=== PATIENT | female | born 1945 | race Caucasian/White ===

== ENCOUNTER 2017-02-08 17:02 | Inpatient (IN) ==
--- NOTE | 2017-02-08 18:02 | Emergency Department Note ---
Disposition Clinical Impression: Weakness, Hypercalcemia, Dizziness, ARF (acute renal failure), Dehydration Disposition: Admitted As Inpatient Condition: Fair Referrals: Namita Rodriguez, FAMILY DINNER SERVICE SPECIALIST [Primary Care Provider] - Forms: ED Satisfaction Letter Time of Disposition: 19:31 ([facility]) Dizziness HPI - General Chief Complaint: ED Dizziness Stated Complaint: Nausea, dizzy, "not myself" Time Seen by Provider: 02/08/17 17:08 Source: patient Mode of arrival: ambulatory Limitations: no limitations Nursing Notes Reviewed: Yes Vital Signs Reviewed: Yes - History of Present Illness HPI Narrative: History of having weakness and ataxia feels like she is lightheaded dizzy feeling she is given a passout states that she cannot walk straight line patient states that she is ataxia states that she has had decreased urine output she has had no fever no chills no lightheadedness that is she has had some pain she denies any burning or urgency stinging cough. Except as all systems reviewed and otherwise negative Pt Subjective Complaint: dizziness, lightheadedness, difficulty walking, weakness Onset (ago): day(s) Timing: gradual onset Description: sense of movement, lightheadedness, off-balance, difficulty walking History of similar episodes: No History of trauma: No Severity: mild Improves with: nothing Worsens with: movement Associated symptoms: Reports: ataxia, malaise, syncope (near), weakness. Denies : chest pain, confusion, diaphoresis, fever, chills, rash, shortness of breath, vision changes, nausea, vomiting, palpitations - Related Data Home Medications Medication Instructions Recorded Confirmed ALPRAZolam [Xanax 0.25 MG Tablet] 0.25 mg PO TID PRN 02/08/17 02/08/17 Aspirin [Lo-Dose Aspirin EC] 81 mg PO DAILY 02/08/17 02/08/17 Lisinopril [Zestril] 40 mg PO DAILY 02/08/17 02/08/17 Meclizine HCl [Verticalm] 25 mg PO DAILY PRN 02/08/17 02/08/17 Multivit-Min/Iron Fum/Folic AC 1 tab PO DAILY 02/08/17 02/08/17 [Stoyj-Ibycyof-Yffcaaeb Tablet] Ondansetron ODT [Zofran ODT] 4 mg SL Q8HR 02/08/17 02/08/17 Simvastatin [Zocor] 40 mg PO HS 02/08/17 02/08/17 hydroCHLOROthiazide 25 mg PO DAILY 02/08/17 02/08/17 [Hydrochlorothiazide] metFORMIN [Glucophage] 500 mg PO BIDWM 02/08/17 02/08/17 Allergies Allergy/AdvReac Type Severity Reaction Status Date / Time No Known Allergies Allergy Verified 07/14/15 09:57 All systems ED: reviewed and negative except as stated. Review of Systems: As Per HPI Constitutional: Reports: weakness. Denies: fever, chills Eyes: Denies: eye pain, eye discharge ENT ED: Denies: ear pain, throat pain Cardiovascular: Denies: chest pain, palpitations Respiratory: Denies: cough, dyspnea Gastrointestinal: Denies: abdominal pain, nausea, vomiting Genitourinary: Denies: urgency, dysuria, frequency Musculoskeletal: Denies: back pain, neck pain Integumentary: Denies: rash, abrasion, lesions Neurological: Reports: weakness, abnormal gait, vertigo Psychiatric: Denies: anxiety Endocrine: Reports: fatigue Hematological/Lymphatic: Denies: easy bleeding Allergic/Immunologic: Denies: facial swelling Past Medical History - Past Medical History Attestation: Yes The following information was validated with the patient. Source: patient, old records reviewed, nursing notes reviewed Medical history: Reports: arthritis, diabetes, hypertension Psychiatric history: Reports: no psych history - Social History Smoking Status: Former smoker Smokeless Tobacco Status: No Alcohol use: Reports: none Drug use: Reports: none Physical Exam - General Limitations: no limitations General appearance: alert, in no apparent distress, obese - Head Head exam: atraumatic, normocephalic, normal inspection - Eye Eye exam: Present: normal appearance, PERRL, EOMI - ENT ENT exam: normal exam, normal oropharynx, mucous membranes moist, normal external ear exam - Neck Neck exam: Present: normal inspection, full ROM, trachea midline - Chest Chest inspection: Present: normal inspection, symmetric chest wall rise - Respiratory Respiratory exam: Present: normal lung sounds bilaterally - Cardiovascular Cardiovascular exam: Present: regular rate, normal rhythm, normal heart sounds - Abdominal Exam Abdominal exam: Present: soft, Non-Tender, normal bowel sounds - Extremities Exam Extremities exam: Present: normal inspection, full ROM, normal capillary refill. Absent: tenderness, pedal edema, joint swelling, calf tenderness - Expanded Lower Extremity Exam Neurovascular/Tendon exam: Present: normal capillary refill, normal fine/light touch Gait: observed and normal - Back Exam Back exam: Present: normal inspection, full ROM. Absent: muscle spasm - Neurological Exam Neurological exam: Present: alert, oriented X3, CN II-XII intact, normal gait, other (Global weakness but no focal weakness on examination she has got no drift arms or legs) - Psychiatric Psychiatric exam: Present: normal affect, normal mood - Skin Skin exam: Present: warm, dry, intact, normal color Course Course Narrative: Seen and examination IV hydrated slowly patient does not meet criteria for sepsis patient be transferred to [facility] for continued IV hydration due to the dehydration which is most likely contributing to the dizziness and weakness I spoke with Dr. Blum he is in agreement we will not add any medications to try to further the decreasing of the calcium other than the IV hydration and function of the kidneys patient's understanding transferred to [facility] stable Vital Signs Temperature 97.2 F L 02/08/17 17:08 Pulse Rate 81 02/08/17 17:08 Respiratory Rate 18 02/08/17 17:08 Blood Pressure 158/80 02/08/17 17:08 O2 Sat by Pulse Oximetry 97 02/08/17 17:08 Temperature 97.2 F L 02/08/17 17:08 Pulse Rate 73 02/08/17 18:24 Respiratory Rate 15 02/08/17 18:24 Blood Pressure 134/63 02/08/17 18:24 O2 Sat by Pulse Oximetry 92 02/08/17 18:24 Oxygen Delivery Oxygen Delivery Room Air Dizziness - MDM Narrative Medical decision making narrative: Anabolic imbalance stroke infection or etiologies as well as renal failure hypercalcemia was making additional complications with this hitting the aggressiveness of the fluid hydration to help flush out the calcium - Medical Records Medical records reviewed: Yes I reviewed the patient's medical records. - Lab Data Lab results reviewed: Yes I reviewed the patient's lab results. Result diagrams: 02/08/17 18:19 02/08/17 18:19 Lab Results 02/08/17 02/08/17 02/08/17 Range/Units 18:19 18:19 18:19 WBC 7.3 (4.3-11.1) K/mcL RBC 4.06 (3.82-4.97) M/mcL Hgb 10.0 L (11.5-15.4) g/dL Hct 32.9 L (35.3-44.9) % MCV 81.0 L (83.0-100.0) fL MCH 24.6 L (28.0-33.3) pg MCHC 30.4 L (31.6-35.5) g/dL RDW 17.1 H (11.5-14.5) % Plt Count 346 (140-400) K/mcL MPV 9.9 (9.4-12.4) fL Immature Gran % 0.7 (0-4) % Seg Neutrophils % 59.2 % Lymphocytes % 28.0 % Monocytes % 10.7 % Eosinophils % 1.0 % Basophils % 0.4 % Neutrophils # 4.3 (1.6-8.9) K/mcL Lymphocytes # 2.0 (0.6-4.6) K/mcL Monocytes # 0.8 (0.0-1.3) K/mcL Eosinophils # 0.1 (0.0-0.6) K/mcL Basophils # 0.0 (0.0-0.2) K/mcL PT 12.1 (9.4-12.1) Seconds INR 1.1 APTT 37.5 H (26.0-36.0) Seconds Sodium 143 (136-145) mEq/L Potassium 3.9 (3.5-4.5) mEq/L Chloride 106 (98-109) mEq/L Carbon Dioxide 24 (19-29) mEq/L BUN 51 H (7-20) mg/dL Creatinine 2.23 H (0.57-1.11) mg/dL Est GFR ( Amer) 26 L (> 60) Est GFR (Non-Af Amer) 22 L (> 60) BUN/Creatinine Ratio 23 (6-26) Glucose 100 H (70-99) mg/dL Calculated Osmolality 310 H (280-300) Calcium 14.6 H* (8.6-10.8) mg/dL Total Bilirubin 0.3 (0.2-1.2) mg/dL AST 14 (5-34) Units/L ALT 18 (0-55) Units/L Alkaline Phosphatase 129 H (38-126) Units/L Serum Total Protein 7.5 (6.0-8.3) g/dL Albumin 3.0 L (3.5-5.0) g/dL Globulin 4.5 H (2.4-3.5) g/dL Albumin/Globulin Ratio 0.7 L (1.1-2.2) TSH 4.110 (0.350-4.840) mcIU/mL Urine Color (Yellow) Urine Clarity (Clear) Urine pH (5.0-8.0) pH Units Ur Specific Douglas (1.010-1.025) Urine Protein (Neg-Trace) mg/dL Urine Glucose (UA) (Normal) mg/dL Urine Ketones (Negative) mg/dL Urine Blood (Negative) Urine Nitrite (Negative) Urine Bilirubin (Negative) Urine Urobilinogen (Normal) mg/dL Ur Leukocyte Esterase (Negative) Urine Microscopic RBC (0-3) per hpf Urine Microscopic WBC (0-3) per hpf Ur Squamous Epith Cells (None-Few) per lpf Urine Bacteria (None-Few) per hpf Hyaline Casts (None-Few) per lpf Urine Mucus (Few) Ur Culture Indicated? (NO) 02/08/17 Range/Units 18:30 WBC (4.3-11.1) K/mcL RBC (3.82-4.97) M/mcL Hgb (11.5-15.4) g/dL Hct (35.3-44.9) % MCV (83.0-100.0) fL MCH (28.0-33.3) pg MCHC (31.6-35.5) g/dL RDW (11.5-14.5) % Plt Count (140-400) K/mcL MPV (9.4-12.4) fL Immature Gran % (0-4) % Seg Neutrophils % % Lymphocytes % % Monocytes % % Eosinophils % % Basophils % % Neutrophils # (1.6-8.9) K/mcL Lymphocytes # (0.6-4.6) K/mcL Monocytes # (0.0-1.3) K/mcL Eosinophils # (0.0-0.6) K/mcL Basophils # (0.0-0.2) K/mcL PT (9.4-12.1) Seconds INR APTT (26.0-36.0) Seconds Sodium (136-145) mEq/L Potassium (3.5-4.5) mEq/L Chloride (98-109) mEq/L Carbon Dioxide (19-29) mEq/L BUN (7-20) mg/dL Creatinine (0.57-1.11) mg/dL Est GFR ( Amer) (> 60) Est GFR (Non-Af Amer) (> 60) BUN/Creatinine Ratio (6-26) Glucose (70-99) mg/dL Calculated Osmolality (280-300) Calcium (8.6-10.8) mg/dL Total Bilirubin (0.2-1.2) mg/dL AST (5-34) Units/L ALT (0-55) Units/L Alkaline Phosphatase (38-126) Units/L Serum Total Protein (6.0-8.3) g/dL Albumin (3.5-5.0) g/dL Globulin (2.4-3.5) g/dL Albumin/Globulin Ratio (1.1-2.2) TSH (0.350-4.840) mcIU/mL Urine Color Yellow (Yellow) Urine Clarity Slightly Cloudy A (Clear) Urine pH 5.0 (5.0-8.0) pH Units Ur Specific Douglas 1.015 (1.010-1.025) Urine Protein Negative (Neg-Trace) mg/dL Urine Glucose (UA) Normal (Normal) mg/dL Urine Ketones 15 H (Negative) mg/dL Urine Blood Trace-lysed H (Negative) Urine Nitrite Positive A (Negative) Urine Bilirubin Negative (Negative) Urine Urobilinogen Normal (Normal) mg/dL Ur Leukocyte Esterase Negative (Negative) Urine Microscopic RBC 0-3 (0-3) per hpf Urine Microscopic WBC 5-15 H (0-3) per hpf Ur Squamous Epith Cells Few (None-Few) per lpf Urine Bacteria Many H (None-Few) per hpf Hyaline Casts Few (None-Few) per lpf Urine Mucus Few (Few) Ur Culture Indicated? YES A (NO) - Radiology Data Radiology results reviewed: Yes I reviewed the patient's radiology results. ITS Impressions Chest X-Ray 02/08/17 17:49 IMPRESSION: 1. Small right pleural effusion with bibasilar atelectasis. 2. Questionable 1.1 cm nodular opacity in left apex which could be related to overlying bony structures or degenerative changes at the 1st costochondral junction. This can be followed on subsequent exams. Dedicated two view chest x-ray may also be helpful. D/ / 02/08/2017 18:19:43 Trinh Jarrett MD / ela Interpreting Provider: Trinh Jarrett MD Head CT 02/08/17 17:49 IMPRESSION: No acute intracranial abnormality. D/ / Van Hurst MD / Van Hurst MD Interpreting Provider: Van Hurst MD - EKG Data EKG attestation: Yes I reviewed and interpreted this EKG. EKG results narrative: Sinus rhythm right bundle branch abnormal EKG with a rate of 72 pr 145 QRS 150 Q -T 372 axis XXIX Critical Care Time Critical Care Time: Yes Total Critical Care Time: 35 Attestation: Critical care performed:35 as is the patient is having an elevated calcium level which is essentially symptomatic causing her weakness she is also showing signs of renal impairment secondary dehydration which is also causing dizziness and weakness with this being noted there the patient was iv hydrated here in the emergency room we will admit her to [facility] because of the weakness and the elevated calcium to make sure that is coming down appropriately i spoke with dr. blum he has agreed transferred to [facility] Time is exclusive of separately billable procedures. Time includes: direct patient care, patient reassessment, coordination of patient care, interpretation of data (laboratory data, radiology data, and respiratory data), review of patient's medical records, medical consultation and documentation of patient care. Procedures included in critical care time: Procedures excluded from critical care time:
[2017-02-08 18:26] LABS: Basophils % 0.4 %; Eosinophils # 0.1 K/mcL (0.0-0.6); Hematocrit 32.9 % (35.3-44.9); Immature Granulocytes % 0.7 % (0-4); Mean Corpuscular HGB Conc 30.4 g/dL (31.6-35.5); Mean Corpuscular Hemoglobin 24.6 pg (28.0-33.3); Mean Platelet Volume 9.9 fL (9.4-12.4); Monocytes # 0.8 K/mcL (0.0-1.3); Monocytes % 10.7 %; Neutrophils # 4.3 K/mcL (1.6-8.9); Platelet Count 346 K/mcL (140-400); Red Blood Count 4.06 M/mcL (3.82-4.97); Red Cell Distribution Width 17.1 % (11.5-14.5); Segmented Neutrophils % 59.2 %
[2017-02-08 18:31] LABS: INR 1.1; Prothrombin Time 12.1 Seconds (9.4-12.1)
[2017-02-08 18:33] LABS: Activated Partial Thrombo Time 37.5 Seconds (26.0-36.0)
[2017-02-08 18:40] LABS: Bilirubin,Urine Negative (Negative); Blood,Urine Trace-lysed (Negative); Clarity,Urine Slightly Cloudy (Clear); Color,Urine Yellow (Yellow); Glucose,Urine (UA) Normal (Normal); Ketones,Urine 15 mg/dL (Negative); Leukocyte Esterase,Urine Negative (Negative); Nitrite,Urine Positive (Negative); Protein,Urine Negative (Neg-Trace); Specific Gravity,Urine 1.015 (1.010-1.025); Urobilinogen,Urine Normal (Normal)
[2017-02-08 18:43] LABS: Albumin/Globulin Ratio 0.7 (1.1-2.2); Bilirubin,Total 0.3 mg/dL (0.2-1.2); Globulin 4.5 g/dL (2.4-3.5); Potassium 3.9 mEq/L (3.5-4.5); Total Protein 7.5 g/dL (6.0-8.3)
[2017-02-08 18:47] LABS: Calcium 14.6 mg/dL (8.6-10.8)
[2017-02-08 18:49] LABS: Bacteria,Urine Many per hpf (None-Few); Hyaline Casts,Urine Few per lpf (None-Few); Mucus,Urine Few (Few); RBC,Urine 0-3 per hpf (0-3); Squamous Epithelial Cell,Urine Few per lpf (None-Few)
[2017-02-08 19:02] LABS: Thyroid Stimulating Hormone 4.11 mcIU/mL (0.350-4.840)
[2017-02-08] MEDS: 0.9 % Sodium Chloride 1,000 ML IVC SCH ×3 (19:42→21:55)
[2017-02-08] MEDS ORDERED: *HR* Dextrose 50 % in Water (Syg) 50 ML SYRINGE IVP PRN (20:46)
[2017-02-08] MEDS ORDERED: D5% in Water 1,000 ML IVC PRN (20:46)
[2017-02-08] MEDS ORDERED: Ondansetron ODT 4 MG TAB.RAPDIS SL PRN (20:46)
[2017-02-08] MEDS ORDERED: ALPRAZolam 0.25 MG TABLET PO PRN (20:46)
[2017-02-08] MEDS ORDERED: Dextrose Gel 15 GM PO PRN ×2 (20:46)
[2017-02-08] MEDS ORDERED: Naloxone 0.4 MG/ML INJ IVP PRN (20:46)
[2017-02-08] MEDS ORDERED: *HR* HYDROcodone/Acet 5/325 mg TABLET PO PRN (20:46)
[2017-02-09] MEDS: 0.9 % Sodium Chloride 1,000 ML IVC SCH ×7 (00:34→13:28)
[2017-02-09 05:27] LABS: Basophils % 0.3 %; Eosinophils # 0.1 K/mcL (0.0-0.6); Eosinophils % 1.4 %; Hematocrit 29.6 % (35.3-44.9); Hemoglobin 8.9 g/dL (11.5-15.4); Immature Granulocytes % 0.5 % (0-4); Lymphocytes # 1.7 K/mcL (0.6-4.6); Lymphocytes % 26.6 %; Mean Corpuscular HGB Conc 30.1 g/dL (31.6-35.5); Mean Corpuscular Hemoglobin 24.3 pg (28.0-33.3); Mean Corpuscular Volume 80.9 fL (83.0-100.0); Mean Platelet Volume 10.1 fL (9.4-12.4); Monocytes # 0.8 K/mcL (0.0-1.3); Monocytes % 12.3 %; Neutrophils # 3.8 K/mcL (1.6-8.9); Platelet Count 320 K/mcL (140-400); Red Blood Count 3.66 M/mcL (3.82-4.97); Red Cell Distribution Width 17.1 % (11.5-14.5); Segmented Neutrophils % 58.9 %
[2017-02-09 05:36] LABS: INR 1.1; Prothrombin Time 12.1 Seconds (9.4-12.1)
[2017-02-09 05:38] LABS: Activated Partial Thrombo Time 32.7 Seconds (26.0-36.0)
[2017-02-09 05:50] LABS: Calcium 12.9 mg/dL (8.6-10.8); Potassium 3.6 mEq/L (3.5-4.5)
[2017-02-09] MEDS ORDERED: *HR* Metformin 500 MG TABLET PO SCH (08:00)
[2017-02-09] MEDS: Insulin LISPRO 300 UNITS/3 ML VIAL SQ SCH ×2 (08:06→11:50)
[2017-02-09] MEDS ORDERED: hydroCHLOROthiazide 25 MG TABLET PO SCH (09:00)
[2017-02-09] MEDS ORDERED: Aspirin Enteric Coated 81 MG Tablet PO SCH (09:00)
[2017-02-09] MEDS ORDERED: Lisinopril 20 MG TABLET PO SCH (09:00)
[2017-02-09] MEDS ORDERED: Multivit/Ca/Min/Fe/FA 1 TAB TABLET PO SCH (09:00)
[2017-02-09] MEDS ORDERED: 0.45 % Sodium Chloride w/KCl 20 MEQ/1,000 ML MLS IVC SCH (12:00)
--- NOTE | 2017-02-09 12:04 | Internal Med History&Physical ---
Date of Encounter: 02/09/17 Time of Encounter: 11:30 Assessment and Plan (1) ARF (acute renal failure) Current visit: Yes Status: Acute Creatinine was normal at 0.78 on 07/21/2016. We will hold HCTZ and lisinopril and give IV fluids. Recheck labs in a.m. Qualifiers: Acute renal failure type: unspecified Qualified Code(s): N17.9 - Acute kidney failure, unspecified (2) Hypercalcemia Current visit: Yes Status: Acute Will hold HCTZ and give IV fluids. (3) Anemia Current visit: Yes Status: Acute We will discontinue aspirin and order anemia testing. Qualifiers: Anemia type: unspecified type Qualified Code(s): D64.9 - Anemia, unspecified (4) Weight loss Current visit: Yes Status: Acute TSH was normal on admission. We will order CT of chest abdomen and pelvis to further evaluate. Internal Medicine - H&P: HPI Chief complaint: Weakness and dizziness Admitted From: Home Plans for Post Hospital Care: Home History of present illness: Ms. Rosales is a 71 year old female who came to emergency room stating she had 2 week history of weakness and dizziness. She had nausea but no vomiting. She been given meclizine Zofran and ranitidine by her PCP without significant improvement. She was evaluated in emergency room and found to have anemia, hypercalcemia, and azotemia. She was admitted to [facility] floor for ongoing care needs. She denies past strokes or seizures. She denies use of OTC calcium supplements. She denies history of kidney stones or other disorders of her kidney or bladder. Past Med Surg Social Fam HX - Past Medical History Medical history: arthritis, diabetes, hypertension Psychiatric history: no psych history - Social History Smoking Status: Former smoker Packs per day: 2 Smokeless Tobacco Status: No Alcohol use: none Drug use: none Internal Medicine - H&P: Meds ALPRAZolam [Xanax 0.25 MG Tablet] 0.25 mg PO TID PRN 02/08/17 [History] Aspirin [Lo-Dose Aspirin EC] 81 mg PO DAILY 02/08/17 [History] Lisinopril [Zestril] 40 mg PO DAILY 02/08/17 [History] Meclizine HCl [Verticalm] 25 mg PO DAILY PRN 02/08/17 [History] Multivit-Min/Iron Fum/Folic AC [Yqpkm-Ajokjvl-Nnxhgptf Tablet] 1 tab PO DAILY [History] Ondansetron ODT [Zofran ODT] 4 mg SL Q8HR 02/08/17 [History] Simvastatin [Zocor] 40 mg PO HS 02/08/17 [History] hydroCHLOROthiazide [Hydrochlorothiazide] 25 mg PO DAILY 02/08/17 [History] metFORMIN [Glucophage] 500 mg PO BIDWM 02/08/17 [History] 3 Allergy/AdvReac Type Severity Reaction Status Date / Time No Known Allergies Allergy Verified 07/14/15 09:57 All Systems PM: A 10-system review of systems was performed and is negative for pertinent findings except as documented above in the HPI. Review of systems: Gen.: She states her weight has decreased from 226 pounds to present weight of 199 pounds over the past 6 months. She attributes this to a change in food selection. Cardiovascular: She has history of hypertension but denies CA heart failure angina DVT or pulmonary embolus Respiratory: She smoked from age [age] up to 3 packs per day. She has not had PFTs and does not use oxygen. She has not been tested for sleep apnea. GI: She denies disorders of her gallbladder or exocrine pancreas : As per history of present illness Neurologic: As per history of present illness Endocrine: She was diagnosed with DM 2 approximately age 46. She has hyperlipidemia but denies thyroid disease Hematology/oncology: She has been told she is anemic. She denies internal malignancies or other blood disorders. Psychiatric: She denies anxiety depression or other mental health issues Musk skeletal: She has DJD but no known gout or other bone joint or muscle disorders. - Constitutional Vitals: Temp Pulse Resp BP Pulse Ox 98.2 F 72 17 116/61 94 02/09/17 10:00 02/09/17 10:00 02/09/17 10:00 02/09/17 10:00 02/09/17 10:00 Exam: Gen.: She is a well-developed well-nourished female lying in bed who appears in no acute distress. HEENT: Head is atraumatic and normocephalic. Eyes: EOMI. There is no scleral icterus. Mouth: Mucosa is moist. Neck: Supple and nontender. There is no thyromegaly or adenopathy noted. Heart: Regular without murmurs gallops or ectopics Lungs: No wheezes or crackles are heard. Abdomen: Soft and nontender. No masses or guarding are noted. Extremities: There is no cyanosis edema or clubbing noted. Dorsalis pedis and posterior tibial pulses are trace palpable bilaterally. Her feet are warm to touch. She has significant DJD changes of her hands. Neurologic: Mental status: She is talkative and seems to be a reliable historian. Cranial nerves: There is slight flattening of the left nasolabial fold compared to the right. Her smile is symmetric. Forehead wrinkles bilaterally. Tongue protrudes midline. EOMI. Motor: There is no pronator drift. Cerebellar: Fair to nose is intact bilaterally. Skin: Warm and dry Internal Med - H&P Results - Labs CBC & Chem 7: 02/09/17 05:14 02/09/17 05:14 Labs: Short CBC 02/09/17 Range/Units 05:14 WBC 6.4 (4.3-11.1) K/mcL Hgb 8.9 L (11.5-15.4) g/dL Hct 29.6 L (35.3-44.9) % Plt Count 320 (140-400) K/mcL Neutrophils # 3.8 (1.6-8.9) K/mcL BMP 02/09/17 05:14 Sodium 144 Potassium 3.6 Chloride 111 H Carbon Dioxide 22 BUN 38 H D Creatinine 1.49 H Glucose 102 H Calcium 12.9 H
[2017-02-09 14:25] VITALS: BP 130/66
--- NOTE | 2017-02-09 16:00 | Discharge Summary ---
Date of Encounter: 02/09/17 Time of Encounter: 15:40 - Discharge Diagnosis (1) Renal cell cancer Priority: Primary Status: Acute Qualifiers: Laterality: left Qualified Code(s): C64.2 - Malignant neoplasm of left kidney, except renal pelvis (2) ARF (acute renal failure) Priority: Secondary Status: Acute Qualifiers: Acute renal failure type: unspecified Qualified Code(s): N17.9 - Acute kidney failure, unspecified (3) Hypercalcemia Priority: Secondary Status: Acute (4) Anemia Priority: Secondary Status: Acute Qualifiers: Anemia type: unspecified type Qualified Code(s): D64.9 - Anemia, unspecified (5) Weight loss Priority: Secondary Status: Acute - Discharge Medications Home Medications: ALPRAZolam [Xanax 0.25 MG Tablet] 0.25 mg PO TID PRN 02/08/17 [History] Aspirin [Lo-Dose Aspirin EC] 81 mg PO DAILY 02/08/17 [History] Lisinopril [Zestril] 40 mg PO DAILY 02/08/17 [History] Meclizine HCl [Verticalm] 25 mg PO DAILY PRN 02/08/17 [History] Multivit-Min/Iron Fum/Folic AC [Mzcxw-Okscpwv-Ceomzryt Tablet] 1 tab PO DAILY [History] Ondansetron ODT [Zofran ODT] 4 mg SL Q8HR 02/08/17 [History] Simvastatin [Zocor] 40 mg PO HS 02/08/17 [History] hydroCHLOROthiazide [Hydrochlorothiazide] 25 mg PO DAILY 02/08/17 [History] metFORMIN [Glucophage] 500 mg PO BIDWM 02/08/17 [History] Allergies/Adverse Reactions: 3 Allergy/AdvReac Type Severity Reaction Status Date / Time No Known Allergies Allergy Verified 07/14/15 09:57 Procedures/tests Complete & Pending: Procedures Performed prior 72 hours Category Date Time Status CT abd pelvis wo no iv no oral [CT] Routine Cat Scan 02/09/17 11:[address] chest wo con [CT] Routine Cat Scan 02/09/17 11:59 Draft Date of admission: 02/08/17 19:51 Primary care physician: Namita Rodriguez CNP Consults: 02/08/17 21:28 Consult to Nutrition [CONS] Routine Comment: Consulting Provider: NUTRITION Reason for Dietary Consult: MST Score - Patient Status Disposition: Transfer Other Condition: Fair - Discharge Instructions Hospital course: Ms. Rosales is a 71 year old female who came to emergency room stating she had 2 week history of weakness and dizziness. She had nausea but no vomiting. She been given meclizine Zofran and ranitidine by her PCP without significant improvement. She was evaluated in emergency room and found to have anemia, hypercalcemia, and azotemia. She was admitted to [facility] for ongoing care needs. Initial orders were written by the emergency room physician. I saw her on February 09 and performed the history and physical. A chest, abdomen, and pelvis CT was ordered to further evaluate. A 14 cm lobulated mass involving the left kidney consistent with primary renal cell carcinoma was seen. There was retroperitoneal lymphadenopathy and bilateral pulmonary nodules consistent with metastatic disease. There was a moderate to large right pleural effusion possibly malignant in origin. I spoke to the patient and family the afternoon of February [address] findings to them. I explained the hypercalcemia, anemia, and weight loss were likely related to the malignancy. They agreed for her to be transferred to [facility] for oncology evaluation. - Time Spent with Patient Total time spent providing and/or coordinating discharge services: - Constitutional Vitals: Temp Pulse Resp BP Pulse Ox 98.1 F 75 18 130/66 95 02/09/17 14:23 02/09/17 14:23 02/09/17 14:23 02/09/17 14:23 02/09/17 14:23
--- NOTE | 2017-02-09 19:07 | Electrocardiograph Report ---
[place] [id number] Test Date: 2017-02-08 Pat Name: Skylar Rosales Department: [id number] Room: [facility] Gender: F [employer]: SUPRIYA : 1945 Requested By: Padmini Moreno Order Number: [id number] Reading MD: Kelvin Mack MD Measurements Intervals [place] Rate: 72 P: 23 OK: 145 QRS: 29 QRSD: 150 T: 16 QT: 372 QTc: 397 Interpretive Statements SINUS RHYTHM RIGHT BUNDLE BRANCH BLOCK Electronically Signed On 02-09-2017 19:05:56 EST by Kelvin Mack MD
[2017-02-10] MEDS ORDERED: *HR* Enoxaparin 40 MG/0.4 ML SYRINGE SQ SCH (06:00)
== END 2017-02-09 18:33 | disposition short-term general hospital (02) | DRG 687 ==
LOC: EMEROOPIK 17:02 → INPPIK 17:02
PROVIDERS: ADMIT Internal Medicine; ATTEND Internal Medicine